=== PATIENT | male | born 1990 | race Caucasian/White ===

== ENCOUNTER 2018-08-24 17:11 | Emergency (ER) | payer OTHER ==
[2018-08-24] MEDS ORDERED: Sodium Chloride 0.9% 1000 ML 1,000 ML IV STA (18:16)
--- NOTE | 2018-08-24 18:45 | ERPHSYRPT ---
- History of Present Illness Historian: patient, family Exam Limitations: no limitations Patient Subjective Stated Complaint: ruq pain that goes into back for a few months. has been [id number] more frequent, nausea/vomiting and indigestion. states pain comes and goes Triage Nursing Assessment: alert and in no distress. states pain to RUQ THAT GOES INTO BACK.. intermittent pain. nausea and vomiting today. has not taken med for pain today,. Timing/Duration: day(s), intermittent Activities at Onset: none Quality: cramping Abdominal Pain Onset Location: RUQ Pain Radiation: no radiation Severity of Pain-Max: moderate Severity of Pain-Current: none Modifying Factors: Improves With: analgesics Associated Symptoms: denies symptoms Previous symptoms: same symptoms as today <TUYET GALLEGOS - Last Filed: 08/24/18 19:04> <BERT REYNA - Last Filed: 08/24/18 21:23> - History of Present Illness Time Seen by Provider: 08/24/18 20:41 Physician History: Pt is a pleasant 28 y/o male that is complaining of RUQ pain that started on Wednesday. Pt stated, that the pain was waxing and waning, and he used Tylenol and Ibuprofen for pain, that helped for a while, but the pain kept coming back. Pt denies any F/C/S. No dysuria, frequency or urgency. No chest pain or cough. Pt denies any sick contacts. No N/V. (TUYET GALLEGOS) - Review of Systems Constitutional: No Fever, No Chills Eyes: No Symptoms Ears, Nose, & Throat: No Symptoms Respiratory: No Cough, No Dyspnea Cardiac: No Chest Pain, No Edema, No Syncope Abdominal/Gastrointestinal: Abdominal Pain Genitourinary Symptoms: No Dysuria Musculoskeletal: Back Pain Skin: No Rash Neurological: No Dizziness, No Focal Weakness, No Sensory Changes Psychological: No Symptoms Endocrine: No Symptoms <TUYET GALLEGOS - Last Filed: 08/24/18 19:04> - Past Medical History Pertinent Past Medical History: Yes - Past Surgical History Past Surgical History: Yes - Social History Smoking Status: Never smoker Exposure to second hand smoke: No Drug Use: none Patient Lives Alone: No <TUYET GALLEGOS - Last Filed: 08/24/18 19:04> - Physical Exam General Appearance: no apparent distress, alert Eye Exam: PERRL/EOMI, eyes nml inspection Ears, Nose, Throat Exam: normal ENT inspection, pharynx normal, moist mucous membranes Neck Exam: normal inspection, non-tender, supple, full range of motion Respiratory Exam: normal breath sounds, lungs clear, No respiratory distress Cardiovascular Exam: regular rate/rhythm, normal heart sounds Gastrointestinal/Abdomen Exam: soft, normal bowel sounds (Non tender at this point.) Back Exam: normal inspection, normal range of motion, No CVA tenderness, No vertebral tenderness Extremity Exam: normal inspection, normal range of motion, pelvis stable Neurologic Exam: alert, oriented x 3, cooperative, normal mood/affect, nml cerebellar function, sensation nml, No motor deficits Skin Exam: normal color, warm, dry SpO2: 99 Oxygen Delivery: Room Air <TUYET GALLEGOS - Last Filed: 08/24/18 19:04> - Nursing Vital Signs Nursing Vital Signs: Initial Vital Signs Temperature 99.6 F 08/24/18 17:40 Pulse Rate 63 08/24/18 17:40 Respiratory Rate 18 08/24/18 17:40 Blood Pressure 135/88 08/24/18 17:40 O2 Sat by Pulse Oximetry 99 08/24/18 17:40 Pain Scale Pain Intensity 3 - Course Nursing assessment & vital signs reviewed: Yes - CT Exams Abdomen/Pelvis CT Interpretation: Discussed w/radiologist (CT abdomen and pelvis: No comparisons. Small hiatal hernia, moderate diffuse fecal stasis, distended gallbladder with 2.3 cm stone and 8 mm right renal cyst) <BERT REYNA - Last Filed: 08/24/18 21:23> Ordered Tests: Active Orders 24 hr Category Date Time Status IV Insertion STAT Care 08/24/18 18:16 Active ABDOMEN AND PELVIS W CONTRAST [CT] Stat Exams 08/24/18 18:16 Taken AMYLASE Stat Lab 08/24/18 19:10 Completed CBC W DIFF Stat Lab 08/24/18 19:10 Completed CMP Stat Lab 08/24/18 19:10 Completed LIPASE Stat Lab 08/24/18 19:10 Completed Lactic Acid Stat Lab 08/24/18 19:10 Completed UA W/RFX UR CULTURE Stat Lab 08/24/18 20:00 Completed Medication Summary Discontinued Medications Generic Name Dose Route Start Last Admin Trade Name Freq PRN Reason Stop Dose Admin Sodium Chloride 1,000 mls @ 999 mls/hr 08/24/18 18:16 08/24/18 19:17 Sodium Chloride 0.9% 1000 Ml IV 08/24/18 19:16 999 mls/hr .Q1H1M STA Administration Sodium Chloride Confirm 08/24/18 19:01 Sodium Chloride 0.9% 1000 Ml Administered 08/24/18 19:02 Dose 1,000 mls @ ud .ROUTE .STK-MED ONE Lab/Rad Data: Laboratory Result Diagrams 08/24/18 19:10 08/24/18 19:10 Laboratory Results 08/24/18 08/24/18 08/24/18 Range/Units 20:00 19:10 19:10 WBC (4.0-10.5) K/mm3 RBC (4.1-5.6) M/mm3 Hgb (12.5-18.0) gm/dl Hct (42-50) % MCV (78-100) fl MCH (26-32) pg MCHC (32-36) g/dl RDW (11.5-14.0) % Plt Count (150-450) K/mm3 MPV (6-9.5) fl Gran % (36.0-66.0) % Eos # (Auto) (0-0.5) Absolute Lymphs (auto) (1.0-4.6) Absolute Monos (auto) (0.0-1.3) Lymphocytes % (24.0-44.0) % Monocytes % (0.0-12.0) % Eosinophils % (0.00-5.0) % Basophils % (0.0-0.4) % Absolute Granulocytes (1.4-6.9) Basophils # (0-0.4) Sodium 142 (137-145) mmol/L Potassium 4.3 (3.5-5.1) mmol/L Chloride 105 (98-107) mmol/L Carbon Dioxide 28 (22-30) mmol/L Anion Gap 13.6 (5-15) MEQ/L BUN 10 (9-20) mg/dL Creatinine 0.53 L (0.66-1.25) mg/dL Estimated GFR > 60.0 ML/MIN Glucose 99 (74-106) mg/dL Lactic Acid 1.2 (0.4-2.0) Calcium 9.2 (8.4-10.2) mg/dL Total Bilirubin 0.50 (0.2-1.3) mg/dL AST 20 (17-59) U/L ALT 23 (0-50) U/L Alkaline Phosphatase 83 (38-126) U/L Serum Total Protein 7.5 (6.3-8.2) g/dL Albumin 4.6 (3.5-5.0) g/dL Amylase 65 (30-110) U/L Lipase 119 (23-300) U/L Urine Color YELLOW (YELLOW) Urine Appearance CLOUDY (CLEAR) Urine pH 7.0 (5-6) Ur Specific Rice 1.023 (1.005-1.025) Urine Protein NEGATIVE (Negative) Urine Ketones NEGATIVE (NEGATIVE) Urine Blood NEGATIVE (0-5) Elmer/ul Urine Nitrite NEGATIVE (NEGATIVE) Urine Bilirubin NEGATIVE (NEGATIVE) Urine Urobilinogen NEGATIVE (0-1) mg/dL Ur Leukocyte Esterase NEGATIVE (NEGATIVE) Urine WBC (Auto) 0-2 (0-5) /HPF Urine RBC (Auto) 0-2 (0-2) /HPF U Epithel Cells (Auto) NONE (FEW) /HPF Urine Bacteria (Auto) NONE (NEGATIVE) /HPF Urine Mucus (Auto) SLIGHT (NEGATIVE) /HPF Urine Culture Reflexed NO (NO) Urine Glucose NEGATIVE (NEGATIVE) mg/dL 08/24/18 Range/Units 19:10 WBC 8.8 (4.0-10.5) K/mm3 RBC 4.35 (4.1-5.6) M/mm3 Hgb 13.9 (12.5-18.0) gm/dl Hct 40.7 L (42-50) % MCV 93.6 (78-100) fl MCH 32.0 (26-32) pg MCHC 34.2 (32-36) g/dl RDW 11.8 (11.5-14.0) % Plt Count 262 (150-450) K/mm3 MPV 9.4 (6-9.5) fl Gran % 65.3 (36.0-66.0) % Eos # (Auto) 0.13 (0-0.5) Absolute Lymphs (auto) 2.27 (1.0-4.6) Absolute Monos (auto) 0.63 (0.0-1.3) Lymphocytes % 25.9 (24.0-44.0) % Monocytes % 7.2 (0.0-12.0) % Eosinophils % 1.5 (0.00-5.0) % Basophils % 0.1 (0.0-0.4) % Absolute Granulocytes 5.71 (1.4-6.9) Basophils # 0.01 (0-0.4) Sodium (137-145) mmol/L Potassium (3.5-5.1) mmol/L Chloride (98-107) mmol/L Carbon Dioxide (22-30) mmol/L Anion Gap (5-15) MEQ/L BUN (9-20) mg/dL Creatinine (0.66-1.25) mg/dL Estimated GFR ML/MIN Glucose (74-106) mg/dL Lactic Acid (0.4-2.0) Calcium (8.4-10.2) mg/dL Total Bilirubin (0.2-1.3) mg/dL AST (17-59) U/L ALT (0-50) U/L Alkaline Phosphatase (38-126) U/L Serum Total Protein (6.3-8.2) g/dL Albumin (3.5-5.0) g/dL Amylase (30-110) U/L Lipase (23-300) U/L Urine Color (YELLOW) Urine Appearance (CLEAR) Urine pH (5-6) Ur Specific Rice (1.005-1.025) Urine Protein (Negative) Urine Ketones (NEGATIVE) Urine Blood (0-5) Elmer/ul Urine Nitrite (NEGATIVE) Urine Bilirubin (NEGATIVE) Urine Urobilinogen (0-1) mg/dL Ur Leukocyte Esterase (NEGATIVE) Urine WBC (Auto) (0-5) /HPF Urine RBC (Auto) (0-2) /HPF U Epithel Cells (Auto) (FEW) /HPF Urine Bacteria (Auto) (NEGATIVE) /HPF Urine Mucus (Auto) (NEGATIVE) /HPF Urine Culture Reflexed (NO) Urine Glucose (NEGATIVE) mg/dL <TUYET GALLEGOS - Last Filed: 08/24/18 19:04> - Progress Progress: improved <BERT REYNA - Last Filed: 08/24/18 21:23> - Progress Progress Note: 08/24/18 20:41 28-year-old white male initially seen by Dr. Gallegos with complaint of right upper quadrant pain symptoms for one month comes and goes states his been increasing since last Wednesday 4 days ago. Patient was out vomiting no diarrhea. Patient has received a 1 L of normal saline. CT of the abdomen and pelvis shows a normal appendix a small hiatal hernia moderate diffuse fecal stasis and a distended gallbladder with a 2.3 cm stone. Patient's white count is 8.8 hemoglobin 13.9 hematocrit 40.7 awaiting other labs. Patient does not want any pain medications at this time. Will await patient's laboratory data anticipate patient will need referral to family doctor and/or surgeon 08/24/18 21:18 Patient's labs are essentially normal. Patient with normal white count normal amylase normal lipase. Patient not in acute distress at this time he does not want any pain meds in the emergency room for pain meds at home. Will plan to discharge patient diagnosis cholelithiasis, biliary colic. Patient to follow-up with family doctor (list), or Dr. Irby. Will write for Katiefrdayana. Patient to return for acute distress or for severe symptoms. (BERT REYNA) <TUYET GALLEGOS - Last Filed: 08/24/18 19:04> - Departure Time of Disposition: 21:19 Departure Disposition: Home Critical Care Time: No <BERT REYNA - Last Filed: 08/24/18 21:23> - Departure Clinical Impression: Right upper quadrant pain, Biliary colic Cholelithiasis Qualifiers: Cholelithiasis location: gallbladder Cholecystitis presence: without cholecystitis Biliary obstruction: without biliary obstruction Qualified Code(s) : K80.20 - Calculus of gallbladder without cholecystitis without obstruction Condition: Fair Referrals: DOCTOR,NO FAMILY [Primary Care Provider] - [facility] IRBY [ACTIVE STAFF] - Additional Instructions: Return home. Plenty of fluids clear fluids only 24-48 hours if abdominal pain. Avoid fatty foods. Follow-up with your family doctor or Dr. Irby. Zofran as prescribed. Return for acute distress or for severe symptoms. Prescriptions: Ondansetron ODT 4 MG [Zofran Odt 4 mg] 4 mg PO Q6H PRN PRN #10 tab.rapdis PRN Reason: nausea and vomiting
[2018-08-24] MEDS ORDERED: Sodium Chloride 0.9% 1000 ML 1,000 ML ONE (19:01)
[2018-08-24 19:20] LABS: BASOPHIL % 0.1 % (0.0-0.4); Basophil (Absolute #) 0.01 (0-0.4); Eosinophil % 1.5 % (0.00-5.0); Eosinophil (Absolute #) 0.13 (0-0.5); Granulocyte Absolute (ANC) 5.71 (1.4-6.9); Granulocytes % 65.3 % (36.0-66.0); Hematocrit 40.7 % (42-50); Hemoglobin 13.9 gm/dl (12.5-18.0); Lymphocyte (Absolute #) 2.27 (1.0-4.6); Lymphocytes % 25.9 % (24.0-44.0); Mean Cell Volume 93.6 fl (78-100); Mean Corpuscular Hgb Concent. 34.2 g/dl (32-36); Mean Platelet Volume 9.4 fl (6-9.5); Monocyte (Absolute #) 0.63 (0.0-1.3); Monocytes % 7.2 % (0.0-12.0); Platelet Count 262 K/mm3 (150-450); Red Blood Count 4.35 M/mm3 (4.1-5.6); Red Cell Distribution Width 11.8 % (11.5-14.0); White Blood Count 8.8 K/mm3 (4.0-10.5)
[2018-08-24 19:54] VITALS: O2SAT 98
[2018-08-24 20:04] LABS: Appearance CLOUDY (CLEAR); Bilirubin NEGATIVE (NEGATIVE); Blood NEGATIVE Ery/ul (0-5); Glucose NEGATIVE (NEGATIVE); Ketones NEGATIVE (NEGATIVE); Leukocyte Esterase NEGATIVE (NEGATIVE); Nitrite NEGATIVE (NEGATIVE); Protein,Urine Dip NEGATIVE (Negative); Specific Gravity 1.023 (1.005-1.025); Urobilinogen NEGATIVE mg/dL (0-1)
[2018-08-24 20:52] LABS: ALBUMIN 4.6 g/dL (3.5-5.0); ALKALINE PHOSPHATASE 83 U/L (38-126); AMYLASE 65 U/L (30-110); ANION GAP 13.6 MEQ/L (5-15); BLOOD UREA NITROGEN 10 mg/dL (9-20); CHLORIDE 105 mmol/L (98-107); Calcium 9.2 mg/dL (8.4-10.2); Carbon Dioxide 28 mmol/L (22-30); Creatinine 1 0.53 mg/dL (0.66-1.25); Glucose 99 mg/dL (74-106); LIPASE 119 U/L (23-300); Potassium 4.3 mmol/L (3.5-5.1); SGOT/AST 20 U/L (17-59); SGPT/ALT 23 U/L (0-50); SODIUM 142 mmol/L (137-145); Total Protein 7.5 g/dL (6.3-8.2)
[2018-08-24 21:00] VITALS: PULSE 73
[2018-08-24] MEDS ORDERED: ZOFRAN ODT 4 MG PO ONE (21:22)
[2018-08-24] MEDS ORDERED: ZOFRAN ODT 4 MG ONE (21:37)
[2018-08-24 21:57] VITALS: BP 132/76
--- NOTE | 2018-08-25 08:41 | XRAY ---
Indication: Right lower quadrant pain. Multiple contiguous axial images obtained through the abdomen and pelvis using 80 cc Isovue 370 contrast only. Comparison: None Lung bases demonstrates mild bibasilar dependent atelectasis. No infiltrate or effusion. Heart is not enlarged. Small hiatal hernia. Noncontrasted stomach and bowel loops appear nonobstructed. Normal appendix. Moderate diffuse scattered colonic fecal debris throughout including rectum. No free fluid/air. Gallbladder moderately distended with 2.3 cm gallstone near the neck of the gallbladder. No abnormal biliary distention. 8 mm right mid renal cortical cyst. Remaining liver, pancreas, spleen, adrenal glands, kidneys, ureters, bladder, and aorta appear unremarkable. No pathologic retroperitoneal lymphadenopathy. Osseous structures intact. No ventral or inguinal hernias. Impression: 1. Fecal stasis without obstruction. 2. Distended gallbladder with gallstone. Sonogram may yield further information. 3. Incidental small hiatal hernia and small right renal cyst. CT DI 23.25
== END 2018-08-24 21:54 ==
LOC: ED 17:11
DX: K80.70 Calculus of gallbladder and bile duct without cholecystitis without obstruction (principal)
CPT/HCPCS: 36415; 74177; 80053; 81001; 82150; 83605; 83690; 85025; 96360; 99284; Q0162

== ENCOUNTER 2022-06-23 17:49 | Emergency (ER) | payer OTHER, SELFPAY ==
[2022-06-23] MEDS ORDERED: Sodium Chloride 0.9% 1000 ML 1,000 ML IV STA (18:11)
[2022-06-23] MEDS ORDERED: Sodium Chloride 0.9% 1000 ML 1,000 ML ONE (18:15)
[2022-06-23 18:23] LABS: Absolute Neutrophil Ct (ANC) 3.28 x10^3/uL (1.4-6.9); Appearance CLEAR (CLEAR); Basophil (Absolute #) 0.03 x10^3/uL (0-0.4); Eosinophil % 1.9 % (0.00-5.0); Eosinophil (Absolute #) 0.11 x10^3/uL (0-0.5); Hematocrit 44.8 % (42-50); Lymphocyte (Absolute #) 1.75 x10^3/uL (1.0-4.6); Lymphocytes % 30.6 % (24.0-44.0); Mean Cell Volume 93.7 fL (78-100); Mean Corpuscular Hemoglobin 31.4 pg (26-32); Mean Corpuscular Hgb Concent. 33.5 g/dL (32-36); Mean Platelet Volume 9.4 fL (7.5-11.0); Monocyte (Absolute #) 0.53 x10^3/uL (0.0-1.3); Monocytes % 9.3 % (0.0-12.0); Neutrophil % 57.5 % (36.0-66.0); Platelet Count 238 x10^3/uL (150-450); Red Blood Count 4.78 x10^6/uL (4.1-5.6); White Blood Count 5.7 x10^3/uL (4.0-10.5)
[2022-06-23 18:24] LABS: Bilirubin NEGATIVE (NEGATIVE); Dipstick done @ ? MAIN LAB; Glucose NEGATIVE (NEGATIVE); Ketones NEGATIVE (NEGATIVE); Nitrite NEGATIVE (NEGATIVE); Ph 7.5 (5-6); Protein,Urine Dip NEGATIVE (Negative); RBC NEGATIVE Ery/ul (0-5); Urobilinogen 4 mg/dL (0-1)
[2022-06-23 18:27] LABS: Urine Cultured Indicated? NO
[2022-06-23 18:41] LABS: ALBUMIN 4.7 g/dL (3.5-5.0); ALKALINE PHOSPHATASE 101 U/L (38-126); ANION GAP 11.8 MEQ/L (5-15); BLOOD UREA NITROGEN 15 mg/dL (9-20); CHLORIDE 102 mmol/L (98-107); CK-Creatinine Phosphokinase 62 U/L (55-170); Calcium 9.3 mg/dL (8.4-10.2); Carbon Dioxide 32 mmol/L (22-30); Creatinine 1 0.89 mg/dL (0.66-1.25); EST GLOMERULAR FILTRATION RATE > 60.0 ML/MIN; Glucose 87 mg/dL (74-106); LIPASE 160 U/L (23-300); Potassium 3.8 mmol/L (3.5-5.1); SGOT/AST 28 U/L (17-59); SGPT/ALT 57 U/L (0-50); SODIUM 142 mmol/L (137-145); Total Protein 7.5 g/dL (6.3-8.2)
[2022-06-23 19:11] VITALS: BP 132/77; PULSE 72; O2SAT 99
--- NOTE | 2022-06-23 19:17 | ERPHSYRPT ---
- History of Present Illness Time Seen by Provider: 06/23/22 18:00 Historian: patient Exam Limitations: no limitations Patient Subjective Stated Complaint: Pt states "I have been struggling with abdominal pain and having a hard time urinating and going to the bathroom. I j ust want to make sure nothing is blocked." Triage Nursing Assessment: PTpresented alert and oriented X 3, skin wpd. Pt ambulates with an upright steady gait, able to speak in clear full sentences pt in no apparent respiratory distress. Pt resting comfortably on the bed. Physician History: Patient is a 31-year-old male presents to our ED for evaluation of voiding. Patient feels that he is not having complete bowel movements. He also feels that he has not voided urine completely. This is been ongoing for the past 2 to 3 days. Patient followed up at [facility]. At that time patient was also experiencing right upper quadrant pain. Patient was diagnosed with biliary colic. He was found to have a Anika lithiasis without cholecystitis. Patient referred to general surgery. Patient currently has an appointment with general surgery scheduled 14 July. Patient states his urine appears dark. He states his muscles feel achy. Patient rates his pain 1-2 out of 10. No testicular pain or tenderness. No active abdominal pain during time of this physical exam. However when present patient states pain shoots from the right side of his abdomen to the left side of his abdomen no trauma. No fever. No nausea vomiting or diaphoresis. No diarrhea. No rash. Patient voices no other complaints or concerns at this time. Portions of this note were created with voice recognition technology. There may be grammatical, spelling, punctuation or sound alike errors Timing/Duration: today Activities at Onset: none Quality: other (Pressure sensation lower abdomen. No rebound. Pain not reproducible during physical examination.) Abdominal Pain Onset Location: other (Patient states pain tends to radiate from right mid flank area to left mid flank area.) Pain Radiation: other Severity of Pain-Max: moderate Severity of Pain-Current: mild Modifying Factors: Improves With: nothing Associated Symptoms: denies symptoms, No testicular pain Previous symptoms: no prior history Allergies/Adverse Reactions: No Known Drug Allergies Allergy (Verified 06/23/22 18:10) Home Medications: Cabergoline 0.25 mg PO DAILY 06/23/22 [History] Lansoprazole [Prevacid] 30 mg PO 06/23/22 [History] Hx Tetanus, Diphtheria Vaccination/Date Given: Yes Hx Influenza Vaccination/Date Given: No Hx Pneumococcal Vaccination/Date Given: No Immunizations Up to Date: Yes Travel Risk - International Travel Have you traveled outside of the country in past 3 weeks: No - Coronavirus Screening Are you exhibiting any of the following symptoms?: No Close contact with a COVID-19 positive Pt in past 14-21 Days: No - Vaccine Status Have you recieved a Covid-19 vaccination: No - Review of Systems Constitutional: No Symptoms, No Fever, No Chills Eyes: No Symptoms Ears, Nose, & Throat: No Symptoms Respiratory: No Symptoms, No Cough, No Dyspnea Cardiac: No Symptoms, No Chest Pain, No Edema, No Syncope Abdominal/Gastrointestinal: No Symptoms, No Abdominal Pain, No Nausea, No Vomiting, No Diarrhea Genitourinary Symptoms: No Symptoms, No Dysuria Musculoskeletal: No Symptoms, No Back Pain, No Neck Pain Skin: No Symptoms, No Rash Neurological: No Symptoms, No Dizziness, No Focal Weakness, No Sensory Changes Psychological: No Symptoms Endocrine: No Symptoms Hematologic/Lymphatic: No Symptoms Immunological/Allergic: No Symptoms All Other Systems: Reviewed and Negative - Past Medical History Pertinent Past Medical History: Yes - Past Surgical History Past Surgical History: Yes - Social History Smoking Status: Never smoker Exposure to second hand smoke: No Drug Use: none Patient Lives Alone: No - Nursing Vital Signs Nursing Vital Signs: Initial Vital Signs Temperature 97.9 F 06/23/22 17:59 Pulse Rate 77 06/23/22 17:59 Respiratory Rate 20 06/23/22 17:59 Blood Pressure 147/78 06/23/22 17:59 O2 Sat by Pulse Oximetry 98 06/23/22 17:59 Pain Scale Pain Intensity 2 - Physical Exam General Appearance: no apparent distress, alert Eye Exam: PERRL/EOMI, eyes nml inspection Ears, Nose, Throat Exam: normal ENT inspection, pharynx normal, moist mucous membranes Neck Exam: normal inspection, non-tender, supple, full range of motion Respiratory Exam: normal breath sounds, lungs clear, airway intact, No respiratory distress Cardiovascular Exam: regular rate/rhythm, normal heart sounds, normal peripheral pulses Gastrointestinal/Abdomen Exam: soft, normal bowel sounds, No tenderness, No mass Back Exam: normal inspection, normal range of motion, No CVA tenderness, No vertebral tenderness Extremity Exam: normal inspection, normal range of motion, pelvis stable Neurologic Exam: alert, oriented x 3, cooperative, normal mood/affect, nml cerebellar function, sensation nml, No motor deficits Skin Exam: normal color, warm, dry Lymphatic Exam: adenopathy SpO2 Interpretation: normal SpO2: 99 O2 Delivery: Room Air - Course Nursing assessment & vital signs reviewed: Yes Ordered Tests: Active Orders 24 hr Category Date Time Status IV Insertion STAT Care 06/23/22 18:11 Active CBC W DIFF Stat Lab 06/23/22 18:13 Completed CK-Creatinine Phosphokinase Stat Lab 06/23/22 18:13 Completed CMP Stat Lab 06/23/22 18:13 Completed LIPASE Stat Lab 06/23/22 18:13 Completed TROPONIN Q4H Lab 06/23/22 18:13 Completed TROPONIN Q4H Lab 06/23/22 22:15 Ordered TROPONIN Q4H Lab 06/24/22 02:15 Ordered UA W/RFX CULTURE Stat Lab 06/23/22 18:13 Completed Medication Summary Generic Name Dose Route Start Last Admin Trade Name Freq PRN Reason Stop Dose Admin Sodium Chloride 1,000 mls @ 999 mls/hr 06/23/22 18:11 06/23/22 18:16 Sodium Chloride 0.9% 1000 Ml IV 06/23/22 19:11 999 mls/hr .Q1H1M STA Administration Discontinued Medications Generic Name Dose Route Start Last Admin Trade Name Freq PRN Reason Stop Dose Admin Sodium Chloride Confirm 06/23/22 18:15 Sodium Chloride 0.9% 1000 Ml Administered 06/23/22 18:16 Dose 1,000 mls @ ud .ROUTE .STK-MED ONE Lab/Rad Data: Laboratory Result Diagrams 06/23/22 18:13 06/23/22 18:13 Laboratory Results 06/23/22 06/23/22 06/23/22 Range/Units 18:13 18:13 18:13 WBC (4.0-10.5) x10^3/uL RBC (4.1-5.6) x10^6/uL Hgb (12.5-18.0) g/dL Hct (42-50) % MCV (78-100) fL MCH (26-32) pg MCHC (32-36) g/dL RDW (11.5-14.0) % Plt Count (150-450) x10^3/uL MPV (7.5-11.0) fL Gran % (36.0-66.0) % Immature Gran % (Auto) (0.00-0.4) % Nucleat RBC Rel Count (0.00-0.1) % Eos # (Auto) (0-0.5) x10^3/uL Immature Gran # (Auto) (0.00-0.03) x10^3u/L Absolute Lymphs (auto) (1.0-4.6) x10^3/uL Absolute Monos (auto) (0.0-1.3) x10^3/uL Absolute Nucleated RBC (0.00-0.01) x10^3u/L Lymphocytes % (24.0-44.0) % Monocytes % (0.0-12.0) % Eosinophils % (0.00-5.0) % Basophils % (0.0-0.4) % Absolute Granulocytes (1.4-6.9) x10^3/uL Basophils # (0-0.4) x10^3/uL Sodium 142 (137-145) mmol/L Potassium 3.8 (3.5-5.1) mmol/L Chloride 102 (98-107) mmol/L Carbon Dioxide 32 H (22-30) mmol/L Anion Gap 11.8 (5-15) MEQ/L BUN 15 (9-20) mg/dL Creatinine 0.89 (0.66-1.25) mg/dL Estimated GFR > 60.0 ML/MIN Glucose 87 (74-106) mg/dL Calcium 9.3 (8.4-10.2) mg/dL Total Bilirubin 0.40 (0.2-1.3) mg/dL AST 28 (17-59) U/L ALT 57 H (0-50) U/L Alkaline Phosphatase 101 (38-126) U/L Creatine Kinase 62 (55-170) U/L Troponin I < 0.012 (0.000-0.034) ng/mL Serum Total Protein 7.5 (6.3-8.2) g/dL Albumin 4.7 (3.5-5.0) g/dL Lipase 160 (23-300) U/L Urinalys Dipstick Clnc MAIN LAB Urine Color YELLOW (YELLOW) Urine Appearance CLEAR (CLEAR) Urine pH 7.5 (5-6) Ur Specific [place] 1.020 (1.005-1.025) POC Urine Protein Conf NEGATIVE (Negative) Urine Ketones NEGATIVE (NEGATIVE) Urine Nitrite NEGATIVE (NEGATIVE) Urine Bilirubin NEGATIVE (NEGATIVE) Urine Urobilinogen 4 (0-1) mg/dL Urine Leukocytes NEGATIVE (NEGATIVE) Urine WBC (Auto) NONE (0-5) /HPF Urine RBC (Auto) NONE (0-2) /HPF U Epithel Cells (Auto) NONE (FEW) /HPF Urine Bacteria (Auto) NONE (NEGATIVE) /HPF Urine RBC NEGATIVE (0-5) Elmer/ul Ur Culture Indicated? NO Urine Glucose NEGATIVE (NEGATIVE) mg/dL 06/23/22 Range/Units 18:13 WBC 5.7 (4.0-10.5) x10^3/uL RBC 4.78 (4.1-5.6) x10^6/uL Hgb 15.0 (12.5-18.0) g/dL Hct 44.8 (42-50) % MCV 93.7 (78-100) fL MCH 31.4 (26-32) pg MCHC 33.5 (32-36) g/dL RDW 12.0 (11.5-14.0) % Plt Count 238 (150-450) x10^3/uL MPV 9.4 (7.5-11.0) fL Gran % 57.5 (36.0-66.0) % Immature Gran % (Auto) 0.2 (0.00-0.4) % Nucleat RBC Rel Count 0.0 (0.00-0.1) % Eos # (Auto) 0.11 (0-0.5) x10^3/uL Immature Gran # (Auto) 0.01 (0.00-0.03) x10^3u/L Absolute Lymphs (auto) 1.75 (1.0-4.6) x10^3/uL Absolute Monos (auto) 0.53 (0.0-1.3) x10^3/uL Absolute Nucleated RBC 0.00 (0.00-0.01) x10^3u/L Lymphocytes % 30.6 (24.0-44.0) % Monocytes % 9.3 (0.0-12.0) % Eosinophils % 1.9 (0.00-5.0) % Basophils % 0.5 (0.0-0.4) % Absolute Granulocytes 3.28 (1.4-6.9) x10^3/uL Basophils # 0.03 (0-0.4) x10^3/uL Sodium (137-145) mmol/L Potassium (3.5-5.1) mmol/L Chloride (98-107) mmol/L Carbon Dioxide (22-30) mmol/L Anion Gap (5-15) MEQ/L BUN (9-20) mg/dL Creatinine (0.66-1.25) mg/dL Estimated GFR ML/MIN Glucose (74-106) mg/dL Calcium (8.4-10.2) mg/dL Total Bilirubin (0.2-1.3) mg/dL AST (17-59) U/L ALT (0-50) U/L Alkaline Phosphatase (38-126) U/L Creatine Kinase (55-170) U/L Troponin I (0.000-0.034) ng/mL Serum Total Protein (6.3-8.2) g/dL Albumin (3.5-5.0) g/dL Lipase (23-300) U/L Urinalys Dipstick Clnc Urine Color (YELLOW) Urine Appearance (CLEAR) Urine pH (5-6) Ur Specific [place] (1.005-1.025) POC Urine Protein Conf (Negative) Urine Ketones (NEGATIVE) Urine Nitrite (NEGATIVE) Urine Bilirubin (NEGATIVE) Urine Urobilinogen (0-1) mg/dL Urine Leukocytes (NEGATIVE) Urine WBC (Auto) (0-5) /HPF Urine RBC (Auto) (0-2) /HPF U Epithel Cells (Auto) (FEW) /HPF Urine Bacteria (Auto) (NEGATIVE) /HPF Urine RBC (0-5) Elmer/ul Ur Culture Indicated? Urine Glucose (NEGATIVE) mg/dL - Progress Progress: improved Progress Note: Patient had a CT abdomen pelvis performed 2 days ago at [facility]. CAT scan showed cholelithiasis. No evidence of acute cholecystitis. While in our ED patient voided urine. Patient states he felt as though he completely voided. This resolved patient's symptoms. Patient completely asymptomatic. Patient is 31 years old. He has had no symptomology or medical history. It is unclear why patient voided completely in our ED and symptoms resolved. However I feel this will require further work-up. Patient referred to Dr. Campos of urology for further evaluation and treatment. We offered a postvoid residual via catheterization and patient declined. In light of patient's recent CT 2 days ago and lack of pain during my exam including resolution of complete symptoms after urinating we did not repeat the CAT scan. Patient understands that if symptoms recur or worsen or if he develops any new concerning symptomology patient to return to our ED immediately. Patient agrees to follow- up with Dr. Campos within 48 hours for evaluation. In light of patient's complaints of dark urine and muscle aches a CK was ordered and resulted as negative. No rhabdomyolysis. Laboratory work-up essentially nonremarkable. 06/23/22 19:17 Urinalysis nonremarkable. Portions of this note were created with voice recognition technology. There may be grammatical, spelling, punctuation or sound alike errors 06/23/22 19:21 Of note we had [facility] fax patient's medical record from his visit 2 days ago to our ED for review prior to discharge 06/23/22 19:27 Patient will maintain his follow-up appointment with general surgery as schedu led. 06/23/22 19:28 Counseled pt/family regarding: diagnosis, need for follow-up - Departure Departure Disposition: Home Clinical Impression: Urinary retention, Encounter for medical screening examination Condition: Stable Critical Care Time: No Referrals: KUSH ELLIS [Primary Care Provider] - Follow up/PCP as directed ALBERTINA CAMPOS [COURTESY STAFF] - Follow up/PCP as directed Additional Instructions: Discharge/Care Plan CHANDRA LOWRY was seen on 06/23/22 in the Emergency Room. The patient was counseled regarding Diagnosis,Lab results, Imaging studies, need for follow up and when to return to the Emergency Room. Prescriptions given: Discharge Note I have spoken with the patient and/or caregivers. I have explained the patient's condition, diagnosis and treatment plan based on the information available to me at this time. I have answered the patient's and/or caregiver's questions and addressed any concerns. The patient and/or caregivers have as good understanding of the patient's diagnosis, condition and treatment plan as can be expected at this point. The vital signs have been stable. The patient's condition is stable and appropriate for discharge from the emergency department. The patient will pursue further outpatient evaluation with the primary care p royal or other designated or consulting physician as outlined in the discharge instructions. The patient and/or caregivers are agreeable to this plan of care and follow-up instructions have been explained in detail. The patient and/or caregivers have received these instruction. The patient/and or caregivers are aware that any significant change in condition or worsening of symptoms should prompt an immediate return to this or the closest emergency department or call 911.
== END 2022-06-23 19:20 | disposition home or self-care (01) ==
LOC: ED 17:49
DX: R33.9 Retention of urine, unspecified (principal); Z79.899 Other long term (current) drug therapy; Z28.310 Unvaccinated for COVID-19
CPT/HCPCS: 36000; 36415; 80053; 81015; 82550; 83690; 84484; 85025; 96360; 99283

== ENCOUNTER 2022-09-24 07:06 | Day surgery (SDC) | payer OTHER ==
--- NOTE | 2022-09-23 09:51 | HP ---
DATE OF SURGERY: 09/24/2022 HISTORY OF PRESENT ILLNESS: The patient is a 32-year-old male who presents with complaints of twisting knife pain in the upper abdomen. The patient had some vomiting. He reports multiple episodes like this. He has been to the emergency room for this. He had gallbladder ultrasound showing cholelithiasis. PAST MEDICAL HISTORY: None. PAST SURGICAL HISTORY: None. ALLERGIES: NKDA. MEDICATIONS: Zofran, hydrocodone. FAMILY HISTORY: None. SOCIAL HISTORY: None. REVIEW OF SYSTEMS: CONSTITUTIONAL: Denies fever or chills. CHEST: Denies shortness of breath. CVS: Denies chest pain. ABDOMEN: Reports upper abdominal pain, nausea, vomiting. PHYSICAL EXAMINATION: GENERAL: No acute distress. CHEST: Nonlabored. No shortness of breath. CVS: Regular rate and rhythm. ABDOMEN: Soft. IMPRESSION: Symptomatic cholelithiasis. PLAN: Laparoscopic cholecystectomy with Dr. Zac Irby. As dictated by Stephanie Moran NP.
[~2022-09-24 07:06] MED LIST: Lactated Ringers 1,000 ML IV ONE; Lactated Ringers 1,000 ML IV SCH; MEFOXIN 2 GM PREMIX** 2 GM/50 ML ML IV SCH; Sensorcaine 0.25% 10 ML ONE
[2022-09-24] MEDS ORDERED: MEFOXIN 2 GM PREMIX** 2 GM/50 ML ML IV ONE (07:17)
[2022-09-24] MEDS ORDERED: Lactated Ringers 1,000 ML IV ONE (07:18)
[2022-09-24] MEDS ORDERED: Versed 2 MG/2 ML Injection ONE (08:01)
[2022-09-24] MEDS ORDERED: Versed 2 MG/2 ML Injection IV PRN (08:02)
[2022-09-24] MEDS ORDERED: Zofran 4 MG/2 ML VIAL ONE (10:44)
[2022-09-24] MEDS ORDERED: Decadron 4 MG INJ ONE (10:44)
[2022-09-24] MEDS ORDERED: TORAdol 30 mg Injection ONE (10:44)
[2022-09-24] MEDS ORDERED: BRIDION 200MG/2ML IV ONE (10:44)
[2022-09-24] MEDS ORDERED: Zemuron 100 MG/10 ML ONE ×2 (10:44→11:59)
[2022-09-24] MEDS ORDERED: DIPRIVAN 200 MG/20 ML IV ONE (10:44)
[2022-09-24] MEDS ORDERED: Xylocaine-Mpf 2% 5 Ml Vial ONE (10:44)
[2022-09-24] MEDS ORDERED: SUBLIMAZE 100 MCG/2 ML ONE ×2 (10:45→12:00)
[2022-09-24] MEDS ORDERED: Ketamine HCl 50 MG/ML ONE (10:56)
[2022-09-24] MEDS ORDERED: OFIRMEV 100 ML IV ONE (10:57)
[2022-09-24] MEDS ORDERED: Magnesium Sulfate 1 GM/2 ML VIAL ONE (10:57)
[2022-09-24] MEDS ORDERED: MORPHINE SULFATE 2 MG INJ ONE (12:40)
[2022-09-24] MEDS ORDERED: Hydromorphone 1 mg/ml Injection ONE ×2 (12:53→13:17)
--- NOTE | 2022-09-24 12:54 | OP ---
SURGERY DATE/TIME: 09/24/2022 1212 PREOPERATIVE DIAGNOSIS: Acute cholecystitis/cholelithiasis. POSTOPERATIVE DIAGNOSIS: Acute cholecystitis/cholelithiasis. PROCEDURE: Laparoscopic cholecystectomy. SURGEON: Dr. aZc Irby. ANESTHESIA: General endotracheal tube. COMPLICATIONS: None. CONDITION: Stable. INDICATIONS: A patient with upper abdominal pain, knife-like in the upper abdomen. The patient has had some vomiting. DESCRIPTION OF PROCEDURE AND FINDINGS: Taken to surgery. General anesthetic, routine prep and drape. Veress needle inserted. Opening pressure of 1, insufflating pressure 14. It was totally cocooned in the omentum this is all taken down. The infundibulum dissected. Cystic duct defined. Cystic artery defined. Both structures triply clipped and transected. Clips noted across and well approximated. Gallbladder rolled out of gallbladder fossa. The gallbladder delivered off of the gallbladder fossa. It was packed with stones. There was about 200. It was placed in a bag. It was removed. It took about 30 minutes to remove this gallbladder. The hole was enlarged until it did come through. The fascia was closed with two figure-of-8 sutures #0 Vicryl. The field was reasonably dry. Subcutaneous tissue irrigated. Skin closed with jeff. Sterile dressing applied. The patient tolerated the procedure satisfactorily.
[2022-09-24 16:02] VITALS: O2SAT 97
[2022-09-24 16:06] VITALS: BP 136/84; PULSE 66
== END 2022-09-24 16:03 | disposition home or self-care (01) ==
LOC: SDC 07:06
PROVIDERS: ATTEND Surgery
DX: K80.00 Calculus of gallbladder with acute cholecystitis without obstruction (principal)
CPT/HCPCS: 36415; 84146; J0694; J1100; J1170; J1885; J2250; J2270; J2405; J2704; J3010; J3475